=== PATIENT | female | born 1965 | race African-American/Black ===

== ENCOUNTER 2018-11-21 17:04 | Inpatient (IN) | payer OTHER ==
[~2018-11-21] VITALS: Ht 177.8 cm; Wt 67.8 kg
[~2018-11-21 17:04] MED LIST: PRINIVIL5 MG PO
[2018-11-21 17:05] VITALS: BP 116/83
[2018-11-21 17:28] LABS: BASOPHILS 0.1 % (0.0-2.0); HEMATOCRIT 40.4 % (37.0-47.0); HEMOGLOBIN 14.1 gm/dL (12.0-15.0); LYMPHOCYTES 5.9 % (24.0-44.0); MCH 31.9 pg (26.0-34.0); MCHC 34.9 g/dL (28.0-37.0); MCV 91.4 fL (80.0-100.0); MONOCYTES 5.5 % (1.0-8.0); PLATELET COUNT 267 thou/uL (150-400); POLYS 88.5 % (36.0-66.0); RBC 4.42 mil/uL (4.20-5.00); RDW 12.1 % (10.5-14.5); WBC 15.8 thou/uL (4.0-11.0)
[2018-11-21 17:37] LABS: ANION GAP 10 mmol/L (7-16); BUN 12 mg/dL (7-18); CHLORIDE 99 mmol/L (98-107); CO2 27 mmol/L (21-32); CREATININE 1.1 mg/dL (0.6-1.0); GLUCOSE 127 mg/dL (74-106); POTASSIUM 3.3 mmol/L (3.5-5.1); SODIUM 136 mmol/L (136-145)
[2018-11-21 17:45] LABS: ALBUMIN 4.6 g/dL (3.4-5.0); LIPASE 108 U/L (73-393); SGOT 23 U/L (15-37); SGPT 27 U/L (30-65); TOTAL BILIRUBIN 0.4 mg/dL (<0.1-1.0); TOTAL PROTEIN 9.3 g/dL (6.4-8.2); TROPONIN-I <0.06 ng/mL (<0.06)
[2018-11-21 20:08] VITALS: BP 152/82
[2018-11-21 20:17] VITALS: BP 157/80
[2018-11-21 20:35] VITALS: BP 155/85
[2018-11-22] VITALS: BP 139/70
[2018-11-22 02:54] VITALS: BP 140/89
--- NOTE | 2018-11-22 03:19 | NUR ---
PT ARRIVED ON UNIT 2029. ADMISSION COMPLETED. PT ORIENTED TO ROOM, CALL LIGHT, AND TV. ADMSION PACKET PROVIDED. PT NPO PER ORDERS. SECOND IV STARTED. PT ALERT AND ORIENTED, UP AD JUANJOSE. PT STATES PAIN IN WELL CONTROED. VSS. NO SIGN OF INFILTRATION TO IV SITES. WILL CONTINUE POC UNTIL EOS.
[2018-11-22 03:51] LABS: ALBUMIN 3.6 g/dL (3.4-5.0); CALCIUM 9.3 mg/dL (8.5-10.1); CREATININE 1.1 mg/dL (0.6-1.0); POTASSIUM 3.5 mmol/L (3.5-5.1); TOTAL BILIRUBIN 0.9 mg/dL (<0.1-1.0); TOTAL PROTEIN 7.6 g/dL (6.4-8.2)
[2018-11-22 03:59] LABS: ABSOLUTE NEUTROPHILS 13.1 thou/uL (1.4-8.2); BASOPHILS 0.1 % (0.0-2.0); EOSINOPHILS 0.1 % (0.0-3.0); HEMOGLOBIN 13.2 gm/dL (12.0-15.0); LYMPHOCYTES 7.3 % (24.0-44.0); MCH 32.9 pg (26.0-34.0); MCHC 35.6 g/dL (28.0-37.0); MCV 92.4 fL (80.0-100.0); MONOCYTES 9.2 % (1.0-8.0); PLATELET COUNT 245 thou/uL (150-400); POLYS 83.3 % (36.0-66.0); RDW 12.3 % (10.5-14.5); WBC 15.8 thou/uL (4.0-11.0)
[2018-11-22 07:15] VITALS: BP 139/87
--- NOTE | 2018-11-22 08:32 | NUR ---
ASSUME CARE OF PATIENT AT 0800; PT LUNGS CLEAR UPON AUSCULTATION; HEART SOUNDS STRONG; PT C/O PAIN OF 5 TO 6; STATES SHE TAKES LISINPRIL AT 10-12MG AND STATES IT IS ON BOTTLE; WILL DISCUSS WITH
--- NOTE | 2018-11-22 08:50 | EKG ---
[address] [place] [address] ELECTROCARDIOGRAM REPORT Name: DEMETRIUS GUERRIER Room #: 426-P ADM IN M.R.#: [id number] Admission: 11/21/18 Attend Phys: Leia Lopez Discharge: Date of : 69 Report #: [id number] THIS REPORT FOR: //name// [facility] ED Test Date: 2018-11-21 Test Time: 17:14:23 Pat Name: DEMETRIUS GUERRIER Department: Room: 426 Gender: F Utility Worker Driver: CATRACHO : 1965 Requested By: Alyx Martinez Order Number: [id number] MD: Johan Saez Measurements Intervals Mobile Rate: 83 P: 80 ND: 170 QRS: 25 QRSD: 166 T: 48 QT: 377 QTc: 443 Interpretive Statements Sinus rhythm No significant abnormality Compared to ECG 12/03/2015 13:35:00 No significant change was found Electronically Signed On 11-22-2018 8:50:29 RECEIVER BULK SYSTEM by Johan Saez [email or web address] <ELECTRONICALLY SIGNED> By: Johan Saez MD, [facility] 11/22/18 0850 D: 01/1713 13 Johan Saez MD, FACC /EPI
--- NOTE | 2018-11-22 12:09 | NUR ---
PT IN SURGERY AT THIS TIME.
[2018-11-22] MEDS ORDERED: NORCO 5-325 TA1 EACH PO (14:38)
[2018-11-22] MEDS ORDERED: SENNA-S TABLET1 EACH PO (14:38)
[2018-11-22 16:00] VITALS: BP 133/74
--- NOTE | 2018-11-22 16:33 | NUR ---
PATIENT RETURNED FROM SURGERY APPROX 1600; PT PROVIDED WITH ICE CHIPS; STATES DOES NOT NEED PAIN MEDS AT THIS TIME; PROVIDED PILLOW FOR COUGHING; PT ON CLEAR LIQUIDS
[2018-11-22 19:30] VITALS: BP 114/69
[2018-11-23 03:57] VITALS: BP 117/66
--- NOTE | 2018-11-23 05:02 | NUR ---
ASSUMED PT CARE 1899. PT ALERT AND ORIENTED. LAP SITES X4, C/D/I. PT STATES PAIN IS WELL CONTROLLED. VSS. IV DRESSING C/D/I, NO SIGNS OF INFILTRATION. REASSESSMENT COMPLETE. MOTHER AT BEDSIDE. WILL CONTINUE POC UNTIL EOS.
[2018-11-23 05:36] LABS: BASOPHILS 0.1 % (0.0-2.0); HEMATOCRIT 34.9 % (37.0-47.0); HEMOGLOBIN 11.9 gm/dL (12.0-15.0); LYMPHOCYTES 3.6 % (24.0-44.0); MCH 31.4 pg (26.0-34.0); MCV 92.4 fL (80.0-100.0); MONOCYTES 6.2 % (1.0-8.0); PLATELET COUNT 232 thou/uL (150-400); POLYS 90.1 % (36.0-66.0); RBC 3.78 mil/uL (4.20-5.00); RDW 12.6 % (10.5-14.5); WBC 17.8 thou/uL (4.0-11.0)
[2018-11-23 05:48] LABS: CALCIUM 9.5 mg/dL (8.5-10.1); POTASSIUM 3.8 mmol/L (3.5-5.1)
--- NOTE | 2018-11-23 07:45 | O ---
[facility] [place] [place] [address] OPERATIVE REPORT Name: DEMETRIUS GUERRIER Room #: 426-P ADM IN M.R.#: [id number] Admission: 11/21/18 Attend Phys: Leia Lopez Discharge: Date of : 69 Report #: [id number] THIS REPORT FOR: //name// CC: Brenda Bai DATE OF SERVICE: 11/22/2018 SURGEON: Carlos A Bai M.D. TOY PAINTER: None. PREOPERATIVE DIAGNOSES: Symptomatic cholelithiasis, possible acute cholecystitis. POSTOPERATIVE DIAGNOSES: Acute cholecystitis with gallbladder hydrops. PROCEDURE: Laparoscopic cholecystectomy with intraoperative cholangiogram. ANESTHESIA: General endotracheal anesthesia and local anesthetic. ESTIMATED BLOOD LOSS: 5 mL. SPECIMEN: Gallbladder. COMPLICATIONS: None appreciated. INDICATIONS FOR PROCEDURE: This is a 53-year-old female patient of Dr. Brenda Washburn, who was seen in [facility] Emergency Room with lower chest pain, favoring the left side and radiating to the posterior right flank. The patient has a history of gastroesophageal reflux; however, the pain she was experiencing was more persistent. She was found to have leukocytosis with normal liver function tests. Abdominal ultrasound revealed a distended gallbladder containing sludge and a large gallstone with no significant gallbladder wall thickening or pericholecystic fluid. The patient's common bile duct diameter was 7 mm. The patient presents now for laparoscopic cholecystectomy with cholangiogram. OPERATIVE FINDINGS: Upon entrance into the abdominal cavity, the gallbladder was taut and distended. It required drainage of nearly 90 mL of hydropic fluid with some element of turbidity. The critical view consisting of cystic artery, cystic duct and lower edge of the gallbladder was identified prior to clipping the cystic duct for cholangiogram. It should be noted that the duodenum was acutely and tightly adherent to the gallbladder. The cholangiogram initially [facility] [address] [place] [address] OPERATIVE REPORT Name: DEMETRIUS GUERRIER Room #: 426-P ADM IN M.R.#: [id number] Admission: 11/21/18 Attend Phys: Leia Lopez Discharge: Date of : 69 Report #: [id number] showed either spasm of the sphincter of Oddi or a filling defect. The patient was given 2 amps of intravenous glucagon, and thereafter, the duct opened up. The duct itself was dilated on cholangiogram. There was ultimately free flow of contrast into the duodenal sweep. Contrast also extended up into both biliary radicals without difficulty or filling defects. Two clips remained on the cystic artery stump; 3 clips remained on the cystic duct stump after division of each. A moderate-sized incision was necessary to remove the gallbladder from the abdominal cavity. At the conclusion of the operation, sponge, needle and instrument counts were correct. The gallbladder was opened on the backtable. Acute inflammatory changes were present. A single large mixed gallstone was found within the gallbladder, consistent with the ultrasound findings. DESCRIPTION OF PROCEDURE IN DETAIL: After the risks, benefits and expectations of the operation were discussed in detail with the patient, informed consent was obtained. The patient was identified in the preoperative holding area. She was given IV antibiotics as documented in the chart in line with SCIP metrics. The patient was then taken to the operating room and she was placed in the supine position. SCDs were placed on the patient's bilateral lower extremities and pneumatic compression was initiated. The patient was then given IV sedation and she was intubated without incident. Her abdomen was prepped and draped in the standard sterile fashion. Timeout was performed to identify the correct patient and procedure. Local anesthetic was infiltrated into the skin and subcutaneous tissue infraumbilically, where a curvilinear incision was made with a #15 blade scalpel. Dissection was carried down to the fascia. A small fascial opening was created. An 11-mm Visiport was placed intraperitoneally with a 0-degree angled laparoscope. Pneumoperitoneum was achieved with insufflation of carbon dioxide to 15 mmHg. The 30-degree angled laparoscope was then inserted. The patient was placed in reverse Trendelenburg position, rotated to her left. A subxiphoid 5 mm and right subcostal 5 mm ports x 2 were placed under direct visualization after local anesthetic was infiltrated into the skin and subcutaneous tissue and appropriately-sized incisions were made. Operative findings were as noted above. I was unable to grasp the gallbladder initially. A Topel needle was used to drain off 90 mL of hydropic purulent fluid from the gallbladder. The gallbladder was then retracted in a cephalad direction. The gallbladder peritoneum was scored medially and laterally with the ultrasonic dissector. Blunt dissection was used to dissect the acutely inflamed gallbladder away from the adjacent duodenum. Ultimately, I was able to retract the gallbladder away from the duodenum. Dissection was carried out around the cystic artery and cystic duct to identify both structures as the only two structures entering the gallbladder. The critical view of safety as described above was seen. A clip was then placed on the cystic duct at its junction with the neck of the [facility] [address] [place] [address] OPERATIVE REPORT Name: DEMETRIUS GUERRIER Room #: 426-P ADM IN M.R.#: [id number] Admission: 11/21/18 Attend Phys: Leia Lopez Discharge: Date of : 69 Report #: [id number] gallbladder. A ductotomy was created. The duct was milked back. The cholangiocatheter was then inserted and a cholangiogram was performed. Initially, there was no flow of contrast as there appeared to be a negative meniscus sign within the distal common bile duct. After the patient was given 2 amps of IV glucagon and several minutes were allowed to pass, the cholangiogram was repeated and there was a ribeiro of contrast through the area in question. This was felt to either represent a filling defect past or sphincter of Oddi spasm. I was uncertain of this as the patient's common bile duct appeared to be globally dilated. Despite this, contrast flowed freely into the duodenal sweep. The cholangiocatheter was then removed and the cystic duct was triply clipped distal to the ductotomy. The duct was divided with the ultrasonic dissector with a good seal. Cystic artery was doubly clipped and divided, leaving 2 clips on the cystic artery stump with good hemostasis. The gallbladder was then dissected out of the liver bed without entrance of the gallbladder or liver bed. The gallbladder was placed in an Endopouch and removed through the infraumbilical port site. This required stretching of the fascia and enlargement of the incision to accommodate for the large stone within the inflamed gallbladder. A lkmqzp-gs-zfpqe 0 PDS suture and additional simple interrupted 0 PDS sutures (one on each side of the lbklkw-pa-itayf suture) were placed with the Quinton-Kenyon laparoscopic fascial closure device under direct visualization. The suture was tied under direct visualization to ensure no incorporation of intra-abdominal content. After ensuring final hemostasis, the abdominal cavity was desufflated and the remaining ports were removed. Interrupted subcuticular 4-0 Monocryl sutures and Dermabond were used to close the skin incision. The patient tolerated the procedure well. She was awakened, extubated and taken to the recovery room in stable condition, with no apparent intraoperative complications. <ELECTRONICALLY SIGNED> By: Carlos A Bai MD, FACS 11/23/18 0745 0025 0132 Carlos A Bai MD, FACS /nt
[2018-11-23 07:51] VITALS: BP 128/72
--- NOTE | 2018-11-23 11:52 | NUR ---
ASSUMED CARE AT 0700, SHIFT ASSESSMENT DONE, MEDS GIVEN, VSS. REPROTED PAIN, PRN PAIN MEDS GIVEN. TOOK A SHOWER THIS AM. LAP SITES LOOK C/D/I. WALKING IN THE ROOM NOW. WILL BE TRANSFERRING TO ROOM 220, REPROT GIVEN TO NURSE TERAN. AWAITING FOR TRANSPORTATION.
[2018-11-23 11:59] VITALS: BP 131/80
--- NOTE | 2018-11-23 14:28 | NUR ---
RECEIVED PT FROM . PT ALERT/ORIENTED X4. RATES PAIN 3/10. DENIES PASSING GAS, SATES SHE HAS BELCHED. ABDOMEN IS SLIGHTLY DISTENDED. 4 SMALL OPERATIVE SITES OPEN TO AIR SEALED WITH DERMABOND, APPEAR ASYMPTOMATIC. DULCOLAX SUPP. GIVEN ORDERED. WILL CONTINUE CURRENT CARE.
[2018-11-23 14:39] VITALS: BP 125/71
--- NOTE | 2018-11-23 14:42 | NUR ---
I have reviewed and concur with student documentation.
--- NOTE | 2018-11-23 15:21 | NUR ---
PT WAS ADMITTED AND HAD A CHOLECYSTECTOMY. PT WAS ALERT AND ORIENTEDX4 ALL DAY. SHE HAD MINOR PAIN BUT DIDNT ASK FOR ANY PAIN MEDICATION. HER BLOOD PRESSURE WAS CONTROLLED THROUGHOUT THE DAY. HEARD BOWEL SOUNDS IN ALL 4 QUADRANTS BUT STILL HASNT HAD A BM. PT HAS NOT EATEN MUCH FOOD TODAY. PT HAD SOME PAIN GETTING UP TO GO TO THE BATHREOOM BUT WAS ABLE TO TAKE A SHOWER BY HERSELF. PTS GAIT WAS STEADY WHEN AMBULATING. PT HAS HAD SOME TROUBLE SITTING BACK DOWN IN THE BED FROM PAIN.
--- NOTE | 2018-11-23 16:47 | NUR ---
PT REPORTS NOT PASSING GAS AFTER SUPPOSITORY. PT REPORTS SHE HAS BEEN UP AND WALKING AROUND IN ROOM. ENOCOURAGED ACTIVITY TO MOVE BOWELS. OTEHRWISE NO NEW CONCERNS AT THIS TIME. WILL CONTINUE TO MONITOR
[2018-11-23 20:04] VITALS: BP 132/76
--- NOTE | 2018-11-24 05:08 | NUR ---
Pt A/OX4,up ad soledad and did ambulate several times before going to bed. Did have a small BM and passing flatus. Has 4 lap florencio sites C/D/I with dermabond. Encouraged to use incentive spirometer when awake. C/o pain @ 5/10 medicated with Melber per EMAR with relief reported. No c/o N/V. Resting quietly with no distress at this time,mom at the bedside for the night. Call light/personal items within reach. Will continue to monitor pt.
[2018-11-24 06:19] LABS: HEMATOCRIT 32.4 % (37.0-47.0); HEMOGLOBIN 11.3 gm/dL (12.0-15.0); MCH 31.9 pg (26.0-34.0); MCHC 34.8 g/dL (28.0-37.0); MCV 91.7 fL (80.0-100.0); RBC 3.53 mil/uL (4.20-5.00); RDW 12.7 % (10.5-14.5); WBC 10.1 thou/uL (4.0-11.0)
[2018-11-24] MEDS ORDERED: HYDROCODON-ACE1 EAC7 PO (08:14)
[2018-11-24 09:09] VITALS: BP 141/92
--- NOTE | 2018-11-24 13:30 | NUR ---
I AGREE WITH NURSING ASSESSMENT DONE BY JOSE/CHANDLER.
[2018-11-24 13:55] VITALS: BP 141/92
--- NOTE | 2018-11-24 14:46 | NUR ---
PATIENT WAS DISCHARGED TO HOME; PATIENT IS CALM; PATIENTS IV SALINE LOCK WAS REMOVED PRIOR TO DISCHARGE; PATIENT GIVEN EDUCATION AND PERSCRIPTIONS
--- NOTE | 2018-11-25 08:08 | PATH ---
[facility] [address] [place] [address] PATHOLOGY RPT PROCEDURE Name: DEMETRIUS JOHN Room #: 220-P DIS IN M.R.#: [id number] Admission: 11/21/18 Date of : 69 Discharge: 11/24/18 Report #: [id number] Path Case #: [id number] [facility] Accession Number: [id number] . 01 Material submitted: . GALLBLADDER . 01 Clinical history: . RUQ abdominal pain . 02 Diagnosis: Gallbladder, cholecystectomy: - Moderate acute and chronic cholecystitis associated with ulceration and hemorrhage. - Cholelithiasis. (IUV/db; 11/23/2018) LBQ/11/23/2018 . 02 Electronically signed: . Betty Coello MD, Pathologist NPI- [id number] . 01 Gross description: . The specimen is received in formalin, labeled "Demetrius John, gallbladder", is a previously opened gallbladder measuring 9.0 x 7.7 cm with an average 0.3 cm wall. The serosa is lizarraga and diffusely covered by hemorrhagic foci. The hepatic aspect is inked black. The mucosa is irregular, hemorrhagic with several focal areas of possible necrosis. The wall is fibrotic. No discrete masses are identified. Within the container there is an oval irregular surfaced yellow-brown calculus measuring 3.5 x 2.2 x 2.0 cm. Ultrasound Technician tissue is submitted in A1-A2. (SWS; 11/22/2018) SHS/SHS . 02 Pathologist provided ICD-10: K80.12 . 02 CPT . 432672 Specimen Comment: A courtesy copy of this report has been sent to Specimen Comment: [phone], , . Specimen Comment: Report sent to ,DR PEARSON / DR MCCALLUM Specimen Comment: A duplicate report has been generated due to demographic updates. Performed at: [address] [facility] [address] PATHOLOGY RPT PROCEDURE Name: DEMETRIUS JOHN Room #: 220-P DIS IN M.R.#: [id number] Admission: 11/21/18 Date of : 69 Discharge: 11/24/18 Report #: [id number] Path Case #: [id number] [address] [facility] [address], [place], [place] [id number] MD William Montes MD Phone: [phone] Performed at: [address], [place], [place] [id number] MD Betty Coello MD Phone: [phone]
== END 2018-11-24 15:02 | disposition home or self-care (01) | DRG 417 ==
LOC: ER 17:04 → EROBS 19:28 → SICU 19:28 → 4E 19:28 → SICU 11-23 12:22 → ENTRNSPT 11-24 14:49 → EDTRNSPTSTS 11-24 14:50 → SICU 11-24 15:02
PROVIDERS: Nurse Practitioner Family; Surgery; ADMIT Hospitalist
PROC: BF101ZZ Fluoroscopy of Bile Ducts using Low Osmolar Contrast (ICD-10-PCS; principal; 2018-11-22)
PROC: 0FT44ZZ Resection of Gallbladder, Percutaneous Endoscopic Approach (ICD-10-PCS; principal; 2018-11-22)
DX: K80.00 Calculus of gallbladder with acute cholecystitis without obstruction (principal); K83.1 Obstruction of bile duct; I10 Essential (primary) hypertension; D72.829 Elevated white blood cell count, unspecified; Z88.2 Allergy status to sulfonamides; Z79.899 Other long term (current) drug therapy; Z87.891 Personal history of nicotine dependence; Z82.49 Family history of ischemic heart disease and other diseases of the circulatory system
CPT/HCPCS: 10084; 15002; 50010; 50101; 50249; 50411; 50555; 50558; 50962; 51489; 51975; 52265; 53307; 54022; 54118; 55245; 55317; 56462; 56525; 56526; 62110; 62900; 70005

== ENCOUNTER → 2019-10-21 | Outpatient (CLI) | payer OTHER ==
[~2019-10-21] VITALS: Ht 177.8 cm; Wt 65.8 kg
[~2019-10-21] MED LIST changes: +BLACK COHOSH40 M1 PO; +HYDROCODON-ACE1 EAC7 PO; +LISINOPRIL-HCT1 EACH PO; +NORCO 5-325 TA1 EACH PO; +SENNA-S TABLET1 EACH PO
--- NOTE | 2019-10-24 13:07 | PATH ---
[facility] [place] [place] [address] PATHOLOGY RPT PROCEDURE Name: DEMETRIUS GUERRIER Room #: REG BILLY Gold.#: [id number] Admission: 10/21/19 Date of : 69 Discharge: Report #: [id number] Path Case #: [id number] L[facility] Accession Number: [id number] . 01 Material submitted: . colon - POLYP AT 60CM . 01 Clinical history: . Preop DX: Screening Postop DX: Colon polyp, diverticulosis, hemorrhoids . 02 Diagnosis: Colonic mucosa "polyp at 60 cm": - Fragments consistent with hyperplastic polyp. - There is no evidence of adenomatous change, high-grade dysplasia or malignancy. (SHA:kelvin; 10/24/2019) QMS 10/24/2019 1029 Local . 02 Electronically signed: . Cali Arias MD, Pathologist NPI- [id number] . 01 Gross description: . Received in formalin labeled "Alvaro, Demetrius, polyp at 60 cm," is a slightly raised segment of pale yellow-lizarraga to focally hemorrhagic mucosa measuring 0.7 x 0.5 x 0.1 cm in greatest dimensions. The surgical margin is inked, and the specimen is bisected and submitted entirely in cassette A1. (DAC; 10/21/2019) XDC/XDC 10/21/2019 1837 Local . 02 Pathologist provided ICD-10: K63.5 . 02 CPT . 980266 Specimen Comment: A courtesy copy of this report has been sent to [phone] Specimen Comment: [phone] Specimen Comment: Report sent to / DR MCCALLUM Specimen Comment: A duplicate report has been generated due to demographic updates. Performed at: 01 [facility] [address] [id number] MD William Montes MD Phone: [phone] [address] [place] [address] PATHOLOGY RPT PROCEDURE Name: DEMETRIUS GUERRIER Room #: REG CLPhilly Gold.#: [id number] Admission: 10/21/19 Date of : 69 Discharge: Report #: [id number] Path Case #: [id number] Performed at: [address] [id number] MD Betty Coello MD Phone: [phone]
--- NOTE | 2019-10-24 17:09 | P ---
[facility] [place] [address] PROCEDURE REPORT Name: DEMETRIUS GUERRIER Room #: REG [employer].#: [id number] Admission: 10/21/19 Attend Phys: Michael Miguel MD Discharge: Date of : 69 Report #: [id number] THIS REPORT FOR: //name// CC: Brenda Miguel DATE OF SERVICE: 10/21/2019 OUTPATIENT COLONOSCOPY REPORT BRIEF HISTORY: The patient is a 54-year-old woman for initial screening colonoscopy. PREOPERATIVE DIAGNOSIS: First time average risk screening colonoscopy. POSTOPERATIVE DIAGNOSES: 1. A 4-5 mm polyp at 60 cm. 2. Occasional colonic diverticula. 3. Small internal hemorrhoids. MEDICATIONS: Deep sedation with propofol per anesthesia. SPECIMEN: Polyp from 60 cm. ESTIMATED BLOOD LOSS: 3 mL. PROCEDURE: Colonoscopy to the cecum and terminal ileum with polypectomy. FINDINGS: Prior to propofol sedation, procedure of colonoscopy was discussed with the patient as well as potential risks and its complications. She indicates she understands and desires to proceed. DESCRIPTION OF PROCEDURE: With the patient in left lateral decubitus position, digital examination was completed, which revealed no abnormalities. Subsequently, the Olympus video colonoscope was introduced in the rectum, advanced under direct vision to the cecum, done with minimal difficulty. The cecum was identified by the ileocecal valve and the appendiceal orifice. I was able to visualize the distal segment of terminal ileum, which was inspected and noted to be unremarkable. At that point, the scope was slowly withdrawn and careful circumferential views were obtained including retroflexion of the scope in the ascending colon. Upon slow withdrawal of the scope, the prep was excellent. Mucosa was within normal limits, normal vascular pattern, normal light reflex. As we withdrew the scope, the mucosa was within normal limits, normal vascular pattern, normal light reflex. An occasional diverticulum was seen. No other bowel abnormalities were noted until 60 cm was reached. At that [facility] [address] [place] [address] PROCEDURE REPORT Name: DEMETRIUS GUERRIER Room #: REG [employer].#: [id number] Admission: 10/21/19 Attend Phys: Michael Miguel MD Discharge: Date of : 69 Report #: [id number] point, a 4-5 mm sessile polyp was seen and removed by cold snare polypectomy. Scope was further withdrawn. No additional neoplastic lesions were seen. The scope was withdrawn in the rectum and no abnormalities were noted until the scope was retroflexed and small hemorrhoids were seen. CONDITION OF THE PATIENT UPON DISCHARGE: Following procedure, the patient drowsy, aroused, conversant and will be discharged home when fully ambulatory. INSTRUCTIONS TO THE PATIENT AND FAMILY AT THE TIME OF DISCHARGE: We will follow up on path and make further recommendations. If this is an adenoma, she should return in 5 years; if it is not adenomatous, then 10 years would be indicated. This is his first colonoscopy. Withdrawal time from the cecum was 14 minutes and 3 seconds. <ELECTRONICALLY SIGNED> By: Michael Miguel MD 10/24/19 1709 1017 1201 Michael Miguel MD /nt
== END | disposition home or self-care (01) ==
LOC: GI 08:22
DX: Z12.11 Encounter for screening for malignant neoplasm of colon (principal); K63.5 Polyp of colon; K57.30 Diverticulosis of large intestine without perforation or abscess without bleeding; K64.8 Other hemorrhoids; I10 Essential (primary) hypertension; F17.290 Nicotine dependence, other tobacco product, uncomplicated; Z98.890 Other specified postprocedural states; Z79.899 Other long term (current) drug therapy; Z88.2 Allergy status to sulfonamides
CPT/HCPCS: 62110; 62900